=== PATIENT | female | born 1970 | race Caucasian/White ===

== ENCOUNTER 2025-03-29 20:12 | Inpatient (IN) | payer SELFPAY ==
[~2025-03-29] VITALS: Ht 167.6 cm; Wt 68.5 kg
[2025-03-29 20:15] VITALS: PULSE 98; RESP 18; O2SAT 100
[2025-03-29] MEDS: NOREPINEPHRINE 8MG/250ML PMX 250 ML IV ONE (20:47)
[2025-03-29 20:48] LABS: BG BASE EXCESS -17.7 mmol/L (-2.0-3.0); BG CARBOXYHEMOGLOBIN 0.2 % (0.5-1.5); BG DEOXYHEMOGLOBIN 3.1 % (0.0-5.0); BG FRACTION INSPIRED OXYGEN 100; BG HCO3 ACT 14.6 mmol/L (21.0-28.0); BG METHEMOGLOBIN 0.2 % (0.5-1.5); BG OXYGEN SATURATION 96.9 % (94.0-98.0); BG OXYHEMOGLOBIN 96.5 % (94.0-98.0); BG PCO2 67.8 mmHg (32.0-45.0); BG PH 6.952 (7.350-7.450); BG PO2 130.1 mmHg (83.0-108.0); BG SAMPLE SITE LEFT RADIAL; BG TOTAL HEMOGLOBIN 12.1 g/dL (12.0-16.0); BG VENT MODE VENT - AC
[2025-03-29] MEDS: SODIUM CHLORIDE 0.9% 1,000 ML IV ONE ×2 (20:50→20:55)
[2025-03-29 21:04] LABS: BASOPHILS % 0.4 % (0.0-2.0); EOSINOPHILS % 0.7 % (0.0-5.0); HEMATOCRIT. 37.2 % (36.0-48.0); HEMOGLOBIN. 11.9 g/dL (12.0-16.0); LYMPHOCYTES % 63.8 % (20.0-50.0); MEAN CORPUSCULAR HEMOGLOBIN 30.8 pg (28.0-32.0); MEAN CORPUSCULAR HGB CONC 32.1 g/dL (31.0-37.0); MEAN CORPUSCULAR VOLUME 96.1 fL (81.0-99.0); MEAN PLATELET VOLUME 8.3 fl (7.4-10.4); MONOCYTES % 2.5 % (2.0-8.0); NEUTROPHILS % 32.6 % (40.0-76.0); PLATELET 213 x1000/uL (130-400); RED BLOOD CELL COUNT 3.87 mill/uL (4.2-5.4); RED CELL DISTRIBUTION WIDTH 13.6 % (11.6-14.6); WHITE BLOOD COUNT 9.4 x1000/uL (4.5-11.0)
[2025-03-29 21:07] LABS: CARBON DIOXIDE 19 mEq/L (21-32); CHLORIDE 101 mEq/L (98-107); POTASSIUM 3.9 mEq/L (3.5-5.1); SODIUM 137 mEq/L (136-145)
[2025-03-29 21:08] LABS: CALCIUM 8.4 mg/dL (8.7-10.4)
[2025-03-29 21:12] LABS: CREATININE 1.5 mg/dL (0.6-1.0)
[2025-03-29 21:13] LABS: ETHANOL BLOOD < 10 mg/dL (<10); UREA NITROGEN BLOOD 15 mg/dL (9-23)
[2025-03-29 21:14] LABS: ACETAMINOPHEN < 2 ug/mL (10-30); ALANINE AMINOTRANSFERASE 131 IU/L (10-49); ALBUMIN 3.4 g/dL (3.2-4.8); ASPARTATE AMINOTRANSFERASE 225 IU/L (<34)
[2025-03-29 21:15] LABS: BILIRUBIN DIRECT < 0.1 mg/dL (<=3.0); BILIRUBIN TOTAL 0.2 mg/dL (0.1-1.0)
[2025-03-29] MEDS ORDERED: MIDAZOLAM 100MG/100ML PMX 100 ML IV PRN (21:15)
[2025-03-29 21:24] LABS: GLUCOSE 443 mg/dL (70-105); TROPONIN I HIGH SENSITIVITY 50 ng/L (3.0-34)
[2025-03-29 21:30] LABS: AMMONIA 123 uMol/L (<32)
[2025-03-29] MEDS ORDERED: DEXTROSE 50% WATER 50ML SYRINGE IV PRN (21:30)
[2025-03-29] MEDS ORDERED: INSULIN REGULAR (DRIP) 100 UNITS in SODIUM CHLORIDE 0.9% 99 ML IV SCH (21:30)
[2025-03-29] MEDS ORDERED: SODIUM CHLORIDE 0.9% 1,000 ML IV SCH ×2 (21:30→23:15)
[2025-03-29] MEDS ORDERED: BLOOD SUGAR DIAGNOSTIC STRIP TEST PRN (21:30)
[2025-03-29] MEDS ORDERED: POTASSIUM CHLORIDE 40 MEQ in SODIUM CHLORIDE 0.9% 230 ML IV PRN (21:30)
[2025-03-29] MEDS: BLOOD SUGAR DIAGNOSTIC STRIP TEST SCH (21:30)
[2025-03-29] MEDS ORDERED: DEXT 5%/0.9% NACL 1,000 ML IV SCH (21:30)
[2025-03-29 22:22] VITALS: O2SAT 99
[2025-03-29] MEDS: MIDAZOLAM 100MG/100ML PMX 100 ML IV PRN (22:22)
[2025-03-29] MEDS: MAGNESIUM 2 G PREMIX 50 ML IV PRN (22:24)
[2025-03-29] MEDS: INSULIN REGULAR 100U/100ML PMX 100 ML IV SCH (22:42)
[2025-03-29 22:43] LABS: BG BASE EXCESS -11.5 mmol/L (-2.0-3.0); BG CARBOXYHEMOGLOBIN 0.4 % (0.5-1.5); BG FRACTION INSPIRED OXYGEN 100; BG HCO3 ACT 15.7 mmol/L (21.0-28.0); BG METHEMOGLOBIN 0.1 % (0.5-1.5); BG OXYHEMOGLOBIN 98.5 % (94.0-98.0); BG PCO2 39.8 mmHg (32.0-45.0); BG PH 7.214 (7.350-7.450); BG PO2 159.6 mmHg (83.0-108.0); BG SAMPLE SITE RIGHT RADIAL; BG TOTAL HEMOGLOBIN 14.7 g/dL (12.0-16.0); BG VENT MODE VENT - AC
[2025-03-29] MEDS ORDERED: ONDANSETRON HCL 4MG/2ML INJ IV PRN (23:15)
[2025-03-29] MEDS ORDERED: IPRATROPIUM/ALBUTEROL 0.5-3(2.5)MG/3ML NEB HHN PRN (23:15)
[2025-03-29] MEDS: KCL 20MEQ/100ML PREMIX 100 ML IV PRN (23:34)
[2025-03-29] MEDS: SODIUM PHOSPHATE 15 MMOL in SODIUM CHLORIDE 0.9% 245 ML IV PRN (23:34)
[2025-03-29] MEDS ORDERED: CALCIUM GLUCONATE 100MG/ML 10ML VIAL IV NR (23:45)
[2025-03-29 23:47] LABS: CHLORIDE 110 mEq/L (98-107); SODIUM 139 mEq/L (136-145)
[2025-03-29 23:48] LABS: CALCIUM 7.3 mg/dL (8.7-10.4); CARBON DIOXIDE 18 mEq/L (21-32)
[2025-03-29 23:53] LABS: CREATININE 1.3 mg/dL (0.6-1.0); GLUCOSE 210 mg/dL (70-105); UREA NITROGEN BLOOD 19 mg/dL (9-23)
[2025-03-29 23:55] LABS: ALANINE AMINOTRANSFERASE 269 IU/L (10-49); ALBUMIN 3.7 g/dL (3.2-4.8); ASPARTATE AMINOTRANSFERASE 487 IU/L (<34); BILIRUBIN DIRECT < 0.1 mg/dL (<=3.0); PHOSPHORUS 6.5 mg/dL (2.5-4.9)
[2025-03-29 23:56] LABS: BILIRUBIN TOTAL 0.3 mg/dL (0.1-1.0); PROTEIN TOTAL 6.5 g/dL (6.0-8.3)
[2025-03-29 23:57] LABS: T4 FREE 1.33 ng/dL (0.89-1.76)
[2025-03-29 23:58] LABS: THYROID STIMULATING HORMONE 1.99 uIU/mL (0.55-4.78)
[2025-03-30] VITALS (97 sets, daily range): BP systolic 31–176; BP diastolic 16–129; PULSE 66–127; RESP 15–25; TEMP 31.6; O2SAT 97–100
[2025-03-30] MEDS ORDERED: DEXTROSE 50% WATER 50ML SYRINGE IV PRN
[2025-03-30] MEDS ORDERED: INSULIN GLARGINE 100 UNITS/ML SUBCUT SCH
[2025-03-30 00:03] LABS: BETA HYDROXYBUTYRATE 0.2 mMol/L (0.0-0.3); TOTAL IRON BINDING CAPACITY 279 ug/dl (250-425)
[2025-03-30 00:11] LABS: FOLIC ACID (FOLATE) SERUM 17.64 ng/mL (>5.38)
[2025-03-30 00:13] LABS: FERRITIN > 1650 ng/mL (10-291)
[2025-03-30 00:24] LABS: HEPATITIS B SURFACE ANTIGEN NEGATIVE (Negative)
[2025-03-30] MEDS: SODIUM BICARBONATE 8.4% 50MEQ/50ML SYR IV NR (00:24)
[2025-03-30] MEDS ORDERED: VANCOMYCIN 1.75GM PMX (XELLIA) 350 ML IV NR (00:30)
[2025-03-30 00:44] LABS: HEPATITIS A AB IGM NEGATIVE (Negative)
[2025-03-30] MEDS: PANTOPRAZOLE SODIUM 40 MG/VIAL IV SCH (00:44)
[2025-03-30 00:45] LABS: HEPATITIS B CORE AB IGM NEGATIVE (Negative); HEPATITIS C AB NON REACTIVE (Neg) (Negative)
[2025-03-30] MEDS ORDERED: CALCIUM GLUCONATE 1GM PREMIX 50 ML IV NR (00:45)
[2025-03-30 00:56] LABS: IRON 173 ug/dL (50-170)
[2025-03-30 01:00] LABS: BASOPHILS % 0.3 % (0.0-2.0); EOSINOPHILS % 0.4 % (0.0-5.0); HEMATOCRIT. 42.1 % (36.0-48.0); LYMPHOCYTES % 19.6 % (20.0-50.0); MEAN CORPUSCULAR HEMOGLOBIN 30.8 pg (28.0-32.0); MEAN CORPUSCULAR HGB CONC 33.5 g/dL (31.0-37.0); MEAN CORPUSCULAR VOLUME 91.9 fL (81.0-99.0); MEAN PLATELET VOLUME 7.5 fl (7.4-10.4); MONOCYTES % 2.4 % (2.0-8.0); NEUTROPHILS % 77.3 % (40.0-76.0); PLATELET 207 x1000/uL (130-400); RED BLOOD CELL COUNT 4.58 mill/uL (4.2-5.4); RED CELL DISTRIBUTION WIDTH 13.2 % (11.6-14.6); WHITE BLOOD COUNT 17.4 x1000/uL (4.5-11.0)
[2025-03-30 01:05] LABS: HEMOGLOBIN. 14.1 g/dL (12.0-16.0)
[2025-03-30 01:43] LABS: BG BASE EXCESS -5.1 mmol/L (-2.0-3.0); BG CARBOXYHEMOGLOBIN 0.1 % (0.5-1.5); BG DEOXYHEMOGLOBIN 0.1 % (0.0-5.0); BG FRACTION INSPIRED OXYGEN 100; BG HCO3 ACT 17.1 mmol/L (21.0-28.0); BG METHEMOGLOBIN 0.3 % (0.5-1.5); BG OXYGEN SATURATION 99.9 % (94.0-98.0); BG OXYHEMOGLOBIN 99.5 % (94.0-98.0); BG PCO2 25.5 mmHg (32.0-45.0); BG PH 7.444 (7.350-7.450); BG PO2 362.5 mmHg (83.0-108.0); BG SAMPLE SITE LEFT RADIAL; BG VENT MODE VENT - AC
[2025-03-30 01:56] LABS: *AMPHETAMINES SCREEN URINE NEGATIVE (NEGATIVE); *BARBITURATES SCREEN URINE NEGATIVE (NEGATIVE); *BENZODIAZEPINES SCREEN URINE NEGATIVE (NEGATIVE); *COCAINE SCREEN URINE NEGATIVE (NEGATIVE); METHADONE URINE SCREEN NEGATIVE (NEGATIVE); OPIATES URINE SCREEN NEGATIVE (NEGATIVE); PHENCYCLIDINE URINE SCREEN NEGATIVE (NEGATIVE)
[2025-03-30 01:57] LABS: CANNABINOID URINE SCREEN NEGATIVE (NEGATIVE); ECSTASY MDMA SCREEN URINE NEGATIVE (NEGATIVE)
[2025-03-30 02:50] LABS: INR 1.4; PROTHROMBIN TIME 14.6 sec (9.6-11.0)
[2025-03-30 03:09] LABS: D-DIMER > 35.20 mg/L FEU (<0.50)
[2025-03-30] MEDS ORDERED: PHENYLEPHRINE 50 MG in DEXT 5% WATER 245 ML IV PRN (03:45)
[2025-03-30] MEDS: NOREPINEPHRINE 8MG/250ML PMX 250 ML IV PRN (03:53)
[2025-03-30 04:45] LABS: CLARITY URINE CLEAR (CLEAR); COLOR URINE YELLOW (YELLOW); PROTEIN URINE 3+ (NEGATIVE); SPECIFIC GRAVITY URINE 1.008 (1.005-1.030)
[2025-03-30 04:46] LABS: GLUCOSE URINE 1+ (NEGATIVE); KETONES URINE NEGATIVE (NEGATIVE)
[2025-03-30 04:47] LABS: LEUKOCYTE ESTERASE URINE NEGATIVE (NEGATIVE); NITRITE URINE NEGATIVE (NEGATIVE); OCCULT BLOOD URINE 2+ (NEGATIVE); UROBILINOGEN URINE 0.2 E.U./dL (0.2-1.0)
[2025-03-30 05:44] LABS: BASOPHILS % 0.2 % (0.0-2.0); EOSINOPHILS % 0.4 % (0.0-5.0); HEMATOCRIT. 42.1 % (36.0-48.0); HEMOGLOBIN. 13.9 g/dL (12.0-16.0); LYMPHOCYTES % 22.6 % (20.0-50.0); MEAN CORPUSCULAR HEMOGLOBIN 30.4 pg (28.0-32.0); MEAN CORPUSCULAR VOLUME 92.2 fL (81.0-99.0); MEAN PLATELET VOLUME 7.6 fl (7.4-10.4); MONOCYTES % 1.9 % (2.0-8.0); NEUTROPHILS % 74.9 % (40.0-76.0); PLATELET 190 x1000/uL (130-400); RED BLOOD CELL COUNT 4.57 mill/uL (4.2-5.4); RED CELL DISTRIBUTION WIDTH 13.1 % (11.6-14.6)
[2025-03-30 05:57] LABS: POTASSIUM 3.5 mEq/L (3.5-5.1)
[2025-03-30 05:59] LABS: CALCIUM 7.5 mg/dL (8.7-10.4)
[2025-03-30] MEDS ORDERED: PIPERACILLIN/TAZO 3.375G/100ML 100 ML IV SCH (06:00)
[2025-03-30 06:03] LABS: CREATININE 1.5 mg/dL (0.6-1.0)
[2025-03-30 06:19] LABS: SQUAMOUS EPITHELIAL CELL URINE FEW /lpf (RARE/1+)
[2025-03-30 06:22] LABS: BACTERIA URINE NONE SEEN; RBC URINE 0-2 /hpf (0-2); WBC URINE 0-2 /hpf (0-2)
[2025-03-30] MEDS: INSULIN LISPRO 100 UNITS/ML SUBCUT SCH (06:29)
[2025-03-30] MEDS: SEVELAMER CARBONATE 800 MG TABLET PO SCH (06:32)
[2025-03-30] MEDS ORDERED: SODIUM CHLORIDE 3% 500 ML IV SCH (07:00)
[2025-03-30] MEDS: BLOOD SUGAR DIAGNOSTIC STRIP TEST SCH (07:24)
[2025-03-30] MEDS: PIPERACILLIN/TAZO 3.375G/50ML IV SCH (07:26)
[2025-03-30] MEDS: NOREPINEPHRINE 32 MG in DEXT 5% WATER 218 ML IV PRN (11:32)
[2025-03-30] MEDS: VANCOMYCIN 1.25GM/250ML IV NR (11:43)
[2025-03-30] MEDS: PHENYLEPHRINE 50MG/250ML PMX IV PRN (12:06)
[2025-03-30 12:27] LABS: POTASSIUM 3.5 mEq/L (3.5-5.1)
[2025-03-30 12:28] LABS: CALCIUM 8.1 mg/dL (8.7-10.4)
[2025-03-30 12:33] LABS: CREATININE 1.9 mg/dL (0.6-1.0)
[2025-03-30 15:42] LABS: TROPONIN I HIGH SENSITIVITY 5324 ng/L (3.0-34)
[2025-03-30] MEDS: DEXT 5%/0.45% NACL 1000ML 1,000 ML IV ONE (16:13)
[2025-03-30 19:10] LABS: CALCIUM 8.2 mg/dL (8.7-10.4); POTASSIUM 3.2 mEq/L (3.5-5.1)
[2025-03-30] MEDS ORDERED: IOHEXOL-350 100 ML BOTTLE ONE (22:11)
[2025-03-31] VITALS (100 sets, daily range): BP systolic 37–200; BP diastolic 14–116; PULSE 71–119; RESP 25–26; TEMP 36.6; O2SAT 89–100
[2025-03-31] MEDS: KCL 20MEQ/100ML PREMIX 100 ML IV SCH (00:20)
[2025-03-31 01:28] LABS: POTASSIUM 3.1 mEq/L (3.5-5.1)
[2025-03-31 01:29] LABS: CALCIUM 7.8 mg/dL (8.7-10.4)
[2025-03-31 01:34] LABS: CREATININE 2.2 mg/dL (0.6-1.0)
[2025-03-31 05:51] LABS: POTASSIUM 4.1 mEq/L (3.5-5.1)
[2025-03-31 05:52] LABS: CALCIUM 8.2 mg/dL (8.7-10.4)
[2025-03-31 05:56] LABS: CREATININE 2.3 mg/dL (0.6-1.0)
[2025-03-31] MEDS: VANCOMYCIN 1GM/200ML PMX (BAXTER) IV SCH (08:02)
[2025-03-31] MEDS ORDERED: NOREPINEPHRINE 32 MG in DEXT 5% WATER 218 ML IV PRN (12:02)
[2025-03-31] MEDS: VASOPRESSIN 20 UNIT in SODIUM CHLORIDE 0.9% 99 ML IV PRN (12:35)
[2025-03-31 12:43] LABS: POTASSIUM 3.9 mEq/L (3.5-5.1)
[2025-03-31 12:44] LABS: CALCIUM 7.7 mg/dL (8.7-10.4)
[2025-03-31 12:49] LABS: CREATININE 2.9 mg/dL (0.6-1.0)
[2025-03-31] MEDS: DEXT 5%/0.9% NACL 1,000 ML IV SCH (16:37)
[2025-03-31] MEDS: NOREPINEPHRINE 8MG/250ML PMX 250 ML IV PRN (18:32)
[2025-03-31 21:23] LABS: CALCIUM 7.6 mg/dL (8.7-10.4)
[2025-03-31 21:24] LABS: POTASSIUM 4.4 mEq/L (3.5-5.1)
[2025-03-31 21:27] LABS: CREATININE 3.3 mg/dL (0.6-1.0)
[2025-04-01 01:45] VITALS: PULSE 91; RESP 25; O2SAT 99
[2025-04-01 04:00] VITALS: PULSE 91; RESP 25; O2SAT 99
== END 2025-03-31 21:45 | DRG 720 ==
LOC: ER 20:12 → EDBD 20:12 → MICUNO 21:56
PROVIDERS: ADMIT Internal Medicine; ATTEND Internal Medicine
PROC: 5A1945Z Respiratory Ventilation, 24-96 Consecutive Hours (ICD-10-PCS; principal; 2025-03-29)
PROC: 0BH17EZ Insertion of Endotracheal Airway into Trachea, Via Natural or Artificial Opening (ICD-10-PCS; 2025-03-29)
PROC: 05HY33Z Insertion of Infusion Device into Upper Vein, Percutaneous Approach (ICD-10-PCS; 2025-03-30)
PROC: B54MZZA Ultrasonography of Right Upper Extremity Veins, Guidance (ICD-10-PCS; 2025-03-30)
DX: A41.9 Sepsis, unspecified organism (principal); I60.9 Nontraumatic subarachnoid hemorrhage, unspecified; I46.9 Cardiac arrest, cause unspecified; J96.01 Acute respiratory failure with hypoxia; G93.41 Metabolic encephalopathy; E72.20 Disorder of urea cycle metabolism, unspecified; J18.9 Pneumonia, unspecified organism; E86.1 Hypovolemia; N17.0 Acute kidney failure with tubular necrosis; E83.39 Other disorders of phosphorus metabolism; I21.4 Non-ST elevation (NSTEMI) myocardial infarction; D50.8 Other iron deficiency anemias; E11.9 Type 2 diabetes mellitus without complications; E83.51 Hypocalcemia; E83.41 Hypermagnesemia; E11.65 Type 2 diabetes mellitus with hyperglycemia; D64.9 Anemia, unspecified; E87.4 Mixed disorder of acid-base balance; J98.11 Atelectasis; G93.1 Anoxic brain damage, not elsewhere classified; I61.5 Nontraumatic intracerebral hemorrhage, intraventricular; Z79.4 Long term (current) use of insulin; Z79.899 Other long term (current) drug therapy
CPT/HCPCS: 31500; 31720; 36415; 36600; 70496; 70498; 71045; 78610; 80048; 80061; 80076; 80305; 80307; 80320; 80329; 81003; 82010; 82140; 82375; 82728; 82746; 82805; 82962; 83036; 83540; 83550; 83605; 83735; 84100; 84439; 84443; 84484; 85025; 85379; 86705; 86709; 86850; 86900; 87070; 87340; 93005; 93306; 93970; 94002; 94003; 94070; 94664; 99291; A9512; J0610; J1815; J2250; J2371; J2470; J2543; J3370; J3475; J3480; J3490; J7030; J7042; J7050; Q9967; G0480

== ENCOUNTER 2025-03-31 17:58 | Inpatient (IN) | payer OTHER ==
[~2025-03-31] VITALS: Ht 163.8 cm; Wt 71.7 kg
[2025-03-31] VITALS (9 sets, daily range): BP systolic 82–239; BP diastolic 57–150; PULSE 88–117; RESP 25; TEMP 36.7–36.8; O2SAT 94–98
[2025-03-31] MEDS: NOREPINEPHRINE 8MG/250ML PMX 250 ML IV SCH (22:40)
[2025-03-31] MEDS: VASOPRESSIN 20 UNIT in SODIUM CHLORIDE 0.9% 99 ML IV SCH (22:45)
[2025-03-31] MEDS: DEXT 5%/0.9% NACL 1,000 ML IV SCH (23:59)
[2025-04-01] VITALS (75 sets, daily range): BP systolic 51–186; BP diastolic 29–109; PULSE 88–111; RESP 19–25; TEMP 35.6–36.8; O2SAT 95–100
[2025-04-01 00:51] LABS: BG BASE EXCESS -10.4 mmol/L (-2.0-3.0); BG CARBOXYHEMOGLOBIN 0.3 % (0.5-1.5); BG DEOXYHEMOGLOBIN 4.4 % (0.0-5.0); BG FRACTION INSPIRED OXYGEN 35; BG HCO3 ACT 13.9 mmol/L (21.0-28.0); BG METHEMOGLOBIN 0.1 % (0.5-1.5); BG OXYGEN SATURATION 95.6 % (94.0-98.0); BG OXYHEMOGLOBIN 95.2 % (94.0-98.0); BG PCO2 26.7 mmHg (32.0-45.0); BG PH 7.333 (7.350-7.450); BG PO2 75.2 mmHg (83.0-108.0); BG SAMPLE SITE ALINE; BG TOTAL HEMOGLOBIN 12.8 g/dL (12.0-16.0); BG VENT MODE VENT - AC
[2025-04-01 00:54] LABS: CARBON DIOXIDE 16 mEq/L (21-32); CHLORIDE 115 mEq/L (98-107); SODIUM 144 mEq/L (136-145)
[2025-04-01 00:55] LABS: CALCIUM 7.7 mg/dL (8.7-10.4)
[2025-04-01 01:00] LABS: CREATINE KINASE MB FRACTION 6.4 ng/mL (0.5-3.6); CREATININE 3.3 mg/dL (0.6-1.0); GLUCOSE 139 mg/dL (70-105); UREA NITROGEN BLOOD 32 mg/dL (9-23)
[2025-04-01 01:01] LABS: ALANINE AMINOTRANSFERASE 102 IU/L (10-49); AMYLASE 172 IU/L (30-118); LACTATE DEHYDROGENASE 351 IU/L (120-246)
[2025-04-01 01:02] LABS: ALBUMIN 2.8 g/dL (3.2-4.8); ASPARTATE AMINOTRANSFERASE 47 IU/L (<34); BILIRUBIN DIRECT 0.2 mg/dL (<=3.0); BILIRUBIN TOTAL 0.5 mg/dL (0.1-1.0); CREATINE KINASE 108 IU/L (34-145); PHOSPHORUS 3.7 mg/dL (2.5-4.9); PROTEIN TOTAL 5.2 g/dL (6.0-8.3)
[2025-04-01 01:12] LABS: TROPONIN I HIGH SENSITIVITY 892 ng/L (3.0-34)
[2025-04-01 01:15] LABS: BASOPHILS % 0.5 % (0.0-2.0); EOSINOPHILS % 2.9 % (0.0-5.0); HEMATOCRIT. 38.4 % (36.0-48.0); HEMOGLOBIN. 12.9 g/dL (12.0-16.0); LYMPHOCYTES % 15.7 % (20.0-50.0); MEAN CORPUSCULAR HEMOGLOBIN 30.8 pg (28.0-32.0); MEAN CORPUSCULAR HGB CONC 33.5 g/dL (31.0-37.0); MEAN CORPUSCULAR VOLUME 91.7 fL (81.0-99.0); MEAN PLATELET VOLUME 9.6 fl (7.4-10.4); MONOCYTES % 3.8 % (2.0-8.0); NEUTROPHILS % 77.1 % (40.0-76.0); PLATELET 81 x1000/uL (130-400); RED BLOOD CELL COUNT 4.19 mill/uL (4.2-5.4); RED CELL DISTRIBUTION WIDTH 13.8 % (11.6-14.6); WHITE BLOOD COUNT 13.6 x1000/uL (4.5-11.0)
[2025-04-01 01:15] LABS: CLARITY URINE CLOUDY (CLEAR); COLOR URINE YELLOW (YELLOW); PROTEIN URINE 2+ (NEGATIVE); SPECIFIC GRAVITY URINE 1.029 (1.005-1.030)
[2025-04-01 01:16] LABS: GLUCOSE URINE NEGATIVE (NEGATIVE); KETONES URINE NEGATIVE (NEGATIVE); LEUKOCYTE ESTERASE URINE 1+ (NEGATIVE); NITRITE URINE NEGATIVE (NEGATIVE); OCCULT BLOOD URINE 2+ (NEGATIVE); UROBILINOGEN URINE 0.2 E.U./dL (0.2-1.0)
[2025-04-01] MEDS ORDERED: BLOOD SUGAR DIAGNOSTIC STRIP TEST SCH (01:26)
[2025-04-01 01:34] LABS: INR 1.4; PARTIAL THROMBOPLASTIN TIME 37.4 sec (23.4-31.0); PROTHROMBIN TIME 14.7 sec (9.6-11.0)
[2025-04-01] MEDS: BLOOD SUGAR DIAGNOSTIC STRIP TEST SCH (02:05)
[2025-04-01] MEDS ORDERED: HETASTARCH/NORMAL SALINE 500 ML PLAST..BAG IV ONE (02:45)
[2025-04-01 03:14] LABS: SQUAMOUS EPITHELIAL CELL URINE 1+ /lpf (RARE/1+); WBC URINE 0-2 /hpf (0-2)
[2025-04-01 03:15] LABS: BACTERIA URINE TRACE; YEAST URINE 2+
[2025-04-01] MEDS: ALBUMIN HUMAN 25GM/500ML (5%) IV NR ×2 (04:12→06:46)
[2025-04-01] MEDS: DEXTROSE 10% WATER 500 ML IV SCH (04:26)
[2025-04-01] MEDS: DOBUTAMINE 250MG PREMIX 250 ML IV SCH (04:32)
[2025-04-01] MEDS: MAGNESIUM 2 G PREMIX 50 ML IV NR (04:32)
[2025-04-01] MEDS: FLUCONAZOLE 100MG TABLET NG NR (04:32)
[2025-04-01] MEDS: SODIUM BICARBONATE 8.4% 50MEQ/50ML SYR IV NR (04:32)
[2025-04-01] MEDS: LINEZOLID 600 MG PREMIX 300 ML IV SCH (05:58)
[2025-04-01 06:16] LABS: BG BASE EXCESS -6.5 mmol/L (-2.0-3.0); BG CARBOXYHEMOGLOBIN 0.3 % (0.5-1.5); BG DEOXYHEMOGLOBIN 3.1 % (0.0-5.0); BG FRACTION INSPIRED OXYGEN 35; BG HCO3 ACT 17.1 mmol/L (21.0-28.0); BG METHEMOGLOBIN 0.3 % (0.5-1.5); BG OXYGEN SATURATION 96.9 % (94.0-98.0); BG OXYHEMOGLOBIN 96.3 % (94.0-98.0); BG PCO2 28.1 mmHg (32.0-45.0); BG PH 7.402 (7.350-7.450); BG PO2 86.6 mmHg (83.0-108.0); BG SAMPLE SITE ALINE; BG TOTAL HEMOGLOBIN 10.8 g/dL (12.0-16.0); BG VENT MODE VENT - AC
[2025-04-01 07:08] LABS: BASOPHILS % 0.3 % (0.0-2.0); EOSINOPHILS % 2.7 % (0.0-5.0); HEMATOCRIT. 30.2 % (36.0-48.0); HEMOGLOBIN. 10.3 g/dL (12.0-16.0); LYMPHOCYTES % 15.2 % (20.0-50.0); MEAN CORPUSCULAR HEMOGLOBIN 31.2 pg (28.0-32.0); MEAN CORPUSCULAR HGB CONC 34.2 g/dL (31.0-37.0); MEAN CORPUSCULAR VOLUME 91.4 fL (81.0-99.0); MEAN PLATELET VOLUME 9.4 fl (7.4-10.4); MONOCYTES % 4.7 % (2.0-8.0); NEUTROPHILS % 77.1 % (40.0-76.0); PLATELET 63 x1000/uL (130-400); RED CELL DISTRIBUTION WIDTH 13.8 % (11.6-14.6); WHITE BLOOD COUNT 10.8 x1000/uL (4.5-11.0)
[2025-04-01 07:12] LABS: CHLORIDE 115 mEq/L (98-107); POTASSIUM 3.8 mEq/L (3.5-5.1); SODIUM 148 mEq/L (136-145)
[2025-04-01 07:13] LABS: CALCIUM 7.5 mg/dL (8.7-10.4); CARBON DIOXIDE 20 mEq/L (21-32)
[2025-04-01 07:18] LABS: CREATINE KINASE MB FRACTION 4.4 ng/mL (0.5-3.6); CREATININE 3.1 mg/dL (0.6-1.0); GLUCOSE 157 mg/dL (70-105); UREA NITROGEN BLOOD 33 mg/dL (9-23)
[2025-04-01 07:19] LABS: AMYLASE 114 IU/L (30-118)
[2025-04-01 07:20] LABS: ALANINE AMINOTRANSFERASE 71 IU/L (10-49); ALBUMIN 2.7 g/dL (3.2-4.8); ASPARTATE AMINOTRANSFERASE 31 IU/L (<34); BILIRUBIN DIRECT 0.2 mg/dL (<=3.0); BILIRUBIN TOTAL 0.6 mg/dL (0.1-1.0); CREATINE KINASE 87 IU/L (34-145); PHOSPHORUS 3.5 mg/dL (2.5-4.9); PROTEIN TOTAL 4.8 g/dL (6.0-8.3)
[2025-04-01 07:42] LABS: INR 1.5; PROTHROMBIN TIME 15.6 sec (9.6-11.0)
[2025-04-01 07:56] LABS: TROPONIN I HIGH SENSITIVITY 769 ng/L (3.0-34)
[2025-04-01 07:59] LABS: LACTATE DEHYDROGENASE 278 IU/L (120-246)
[2025-04-01] MEDS ORDERED: METHYLPREDNISOLONE 40MG/ML INJ IV ONE (08:00)
[2025-04-01 08:08] LABS: CLARITY URINE SL HAZY (CLEAR); COLOR URINE YELLOW (YELLOW); PH URINE 5.5 (4.5-8.0); SPECIFIC GRAVITY URINE 1.025 (1.005-1.030)
[2025-04-01 08:09] LABS: GLUCOSE URINE TRACE (NEGATIVE); KETONES URINE NEGATIVE (NEGATIVE); LEUKOCYTE ESTERASE URINE NEGATIVE (NEGATIVE); NITRITE URINE NEGATIVE (NEGATIVE); OCCULT BLOOD URINE 3+ (NEGATIVE); PROTEIN URINE 3+ (NEGATIVE); UROBILINOGEN URINE 0.2 E.U./dL (0.2-1.0)
[2025-04-01 08:11] LABS: LACTIC ACID 2.2 mmol/L (0.4-2.0)
[2025-04-01 08:34] LABS: BG CARBOXYHEMOGLOBIN 0.3 % (0.5-1.5); BG DEOXYHEMOGLOBIN 1.5 % (0.0-5.0); BG HCO3 ACT 14.4 mmol/L (21.0-28.0); BG OXYGEN SATURATION 98.5 % (94.0-98.0); BG OXYHEMOGLOBIN 98.2 % (94.0-98.0); BG PCO2 30.1 mmHg (32.0-45.0); BG PH 7.297 (7.350-7.450); BG SAMPLE SITE ALINE; BG TOTAL HEMOGLOBIN 9.2 g/dL (12.0-16.0)
[2025-04-01 08:42] LABS: BG VENT MODE APRV
[2025-04-01 08:43] LABS: BG FRACTION INSPIRED OXYGEN 35
[2025-04-01] MEDS: THIAMINE HCL 500 MG in SODIUM CHLORIDE 0.9% 95 ML IV NR (08:49)
[2025-04-01] MEDS: METHYLPREDNISOLONE SOD 1,000 MG in DEXT 5% WATER 100 ML IV NR (08:49)
[2025-04-01] MEDS: FAMOTIDINE 20MG/2ML VIAL IV SCH (08:49)
[2025-04-01] MEDS: PIPERACILLIN/TAZO 3.375G/50ML 50 ML IV SCH (09:23)
[2025-04-01] MEDS: SODIUM BICARBONATE 8.4% 50MEQ/50ML SYR IV SCH (09:23)
[2025-04-01 09:26] LABS: SQUAMOUS EPITHELIAL CELL URINE 2+ /lpf (RARE/1+)
[2025-04-01 09:29] LABS: BACTERIA URINE 2+; YEAST URINE 3+
[2025-04-01 09:31] LABS: BASOPHILS % 0.4 % (0.0-2.0); EOSINOPHILS % 2.6 % (0.0-5.0); HEMOGLOBIN. 9.9 g/dL (12.0-16.0); LYMPHOCYTES % 14.7 % (20.0-50.0); MEAN CORPUSCULAR HEMOGLOBIN 31.4 pg (28.0-32.0); MEAN CORPUSCULAR HGB CONC 34.1 g/dL (31.0-37.0); MEAN CORPUSCULAR VOLUME 92.3 fL (81.0-99.0); MEAN PLATELET VOLUME 9.5 fl (7.4-10.4); MONOCYTES % 3.6 % (2.0-8.0); NEUTROPHILS % 78.7 % (40.0-76.0); PLATELET 56 x1000/uL (130-400); RED BLOOD CELL COUNT 3.14 mill/uL (4.2-5.4); RED CELL DISTRIBUTION WIDTH 13.9 % (11.6-14.6)
[2025-04-01 09:47] LABS: INR 1.5; PARTIAL THROMBOPLASTIN TIME 48.4 sec (23.4-31.0); PROTHROMBIN TIME 15.4 sec (9.6-11.0)
[2025-04-01 10:12] LABS: BG BASE EXCESS -1.4 mmol/L (-2.0-3.0); BG CARBOXYHEMOGLOBIN 0.3 % (0.5-1.5); BG DEOXYHEMOGLOBIN 1.6 % (0.0-5.0); BG FRACTION INSPIRED OXYGEN 35; BG HCO3 ACT 22.8 mmol/L (21.0-28.0); BG METHEMOGLOBIN 0.3 % (0.5-1.5); BG OXYGEN SATURATION 98.4 % (94.0-98.0); BG OXYHEMOGLOBIN 97.8 % (94.0-98.0); BG PCO2 36.2 mmHg (32.0-45.0); BG PH 7.417 (7.350-7.450); BG PO2 124.3 mmHg (83.0-108.0); BG TOTAL HEMOGLOBIN 9.4 g/dL (12.0-16.0); BG VENT MODE VENT - APRV
[2025-04-01 12:23] LABS: BG BASE EXCESS -5.9 mmol/L (-2.0-3.0); BG CARBOXYHEMOGLOBIN 0.3 % (0.5-1.5); BG DEOXYHEMOGLOBIN 1.3 % (0.0-5.0); BG FRACTION INSPIRED OXYGEN 35; BG HCO3 ACT 19.4 mmol/L (21.0-28.0); BG METHEMOGLOBIN 0.3 % (0.5-1.5); BG OXYGEN SATURATION 98.7 % (94.0-98.0); BG OXYHEMOGLOBIN 98.1 % (94.0-98.0); BG PCO2 37.1 mmHg (32.0-45.0); BG PH 7.336 (7.350-7.450); BG PO2 139.6 mmHg (83.0-108.0); BG SAMPLE SITE ALINE; BG TOTAL HEMOGLOBIN 10.4 g/dL (12.0-16.0); BG VENT MODE VENT - APRV
[2025-04-01 13:03] LABS: CHLORIDE 114 mEq/L (98-107); POTASSIUM 3.7 mEq/L (3.5-5.1); SODIUM 148 mEq/L (136-145)
[2025-04-01 13:04] LABS: CALCIUM 7.4 mg/dL (8.7-10.4); CARBON DIOXIDE 24 mEq/L (21-32)
[2025-04-01 13:09] LABS: CREATININE 2.7 mg/dL (0.6-1.0); GLUCOSE 166 mg/dL (70-105); UREA NITROGEN BLOOD 31 mg/dL (9-23)
[2025-04-01 13:10] LABS: AMYLASE 103 IU/L (30-118); LACTATE DEHYDROGENASE 281 IU/L (120-246)
[2025-04-01 13:11] LABS: ALANINE AMINOTRANSFERASE 66 IU/L (10-49); ALBUMIN 3.3 g/dL (3.2-4.8); ASPARTATE AMINOTRANSFERASE 28 IU/L (<34); BILIRUBIN DIRECT 0.5 mg/dL (<=3.0); CREATINE KINASE 89 IU/L (34-145); PHOSPHORUS 4.8 mg/dL (2.5-4.9); PROTEIN TOTAL 5.5 g/dL (6.0-8.3)
[2025-04-01 13:47] LABS: TROPONIN I HIGH SENSITIVITY 546 ng/L (3.0-34)
[2025-04-01] MEDS ORDERED: THIAMINE HCL 100 MG in SODIUM CHLORIDE 0.9% 49 ML IV SCH (16:00)
[2025-04-01] MEDS ORDERED: METHYLPREDNISOLONE SOD SUCC 500 MG in DEXT 5% WATER 100 ML IV SCH (16:00)
== END 2025-04-01 15:45 | DRG 52 ==
LOC: MICUNO 17:58
PROVIDERS: ADMIT Internal Medicine
PROC: 0BH17EZ Insertion of Endotracheal Airway into Trachea, Via Natural or Artificial Opening (ICD-10-PCS; principal; 2025-03-31)
PROC: 03HY32Z Insertion of Monitoring Device into Upper Artery, Percutaneous Approach (ICD-10-PCS; 2025-04-01)
DX: J96.01 Acute respiratory failure with hypoxia; N17.0 Acute kidney failure with tubular necrosis; I61.5 Nontraumatic intracerebral hemorrhage, intraventricular; A41.9 Sepsis, unspecified organism; G93.41 Metabolic encephalopathy; E72.20 Disorder of urea cycle metabolism, unspecified; J18.9 Pneumonia, unspecified organism; E86.1 Hypovolemia; I21.4 Non-ST elevation (NSTEMI) myocardial infarction; E83.39 Other disorders of phosphorus metabolism; D50.8 Other iron deficiency anemias; E83.51 Hypocalcemia; E83.41 Hypermagnesemia; E11.65 Type 2 diabetes mellitus with hyperglycemia; D64.9 Anemia, unspecified; E87.4 Mixed disorder of acid-base balance; J98.11 Atelectasis; G93.1 Anoxic brain damage, not elsewhere classified
CPT/HCPCS: 36415; 36600; 71045; 76700; 80053; 80202; 81003; 82150; 82248; 82375; 82550; 82553; 82805; 82962; 82977; 83605; 83615; 83735; 83930; 84100; 84484; 85025; 86850; 86900; 87070; 87106; 93005; 94003; 94070; J1250; J2020; J2543; J2930; J3411; J3475; J3490; J7050; J7060; P9041